=== PATIENT | female | born 1990 | race Caucasian/White ===

== ENCOUNTER 2018-06-08 23:55 | Emergency (ER) | payer MEDICAID ==
[~2018-06-08] VITALS: Ht 152.4 cm; Wt 63.5 kg
--- NOTE | 2018-06-09 00:10 | NUR ---
ASSUMED CARE OF PT AT THIS TIME. C/O INTERMITTENT LEFT INGUINAL PAIN X 2 YEARS W/ WORSENING OVER THE LAST WEEK. AAOX4 WITH EVEN AND STEADY GAIT; PATIENT STATES PAIN OF 0/10; VSS; PATIENT POSITIONED FOR COMFORT; HOB ELEVATED; BEDRAILS UP X2; BED DOWN. ER MD MADE AWARE OF PT STATUS. WILL CONTINUE TO MONITOR.
--- NOTE | 2018-06-09 00:10 | NUR ---
PT TAKEN TO BED 5
[2018-06-09 00:16] VITALS: BP 144/77
--- NOTE | 2018-06-09 00:25 | NUR ---
Dr. Gomes evaluating patient at bedside.
--- NOTE | 2018-06-09 00:31 | NUR ---
PT MOVED TO BED 1
[2018-06-09] MEDS ORDERED: KETOROLAC 30 MG/ML VIAL IM ONE (01:05)
[2018-06-09 02:14] LABS: APPEARANCE,URINE CLEAR (CLEAR); BILIRUBIN,URINE NEGATIVE (NEGATIVE); BLOOD, URINE 1+ (NEGATIVE); COLOR,URINE YELLOW (YELLOW); LEUKOCYTE ESTERASE ,URINE NEGATIVE (NEGATIVE); NITRITE, URINE NEGATIVE (NEGATIVE); PH,URINE 6.5 (5.0-9.0); UGLUCOSE NEGATIVE (NEGATIVE)
[2018-06-09 02:32] LABS: WBC,URINE 0-5 /HPF (0-5)
[2018-06-09 03:02] VITALS: BP 135/68
--- NOTE | 2018-06-09 03:03 | NUR ---
Patient discharged with v/s stable. Written and verbal after care instructions given and explained. Patient alert, oriented and verbalized understanding of instructions. Ambulatory with steady gait. All questions addressed prior to discharge. ID band removed. Patient advised to follow up with PMD. Rx of NAPROSYN 500MG given. Patient educated on indication of medication including possible reaction and side effects. Opportunity to ask questions provided and answered.
== END 2018-06-09 03:03 | disposition home or self-care (01) ==
LOC: MED 23:55
DX: R10.2 Pelvic and perineal pain (principal)
CPT/HCPCS: 76856; 81001; 81025; 93976; 96372; 99284; J1885; Q0092

== ENCOUNTER 2018-08-21 01:48 | Emergency (ER) | payer MEDICAID ==
[~2018-08-21] VITALS: Ht 152.4 cm; Wt 66.2 kg
[2018-08-21 01:58] VITALS: BP 131/78
--- NOTE | 2018-08-21 02:11 | NUR ---
DENIES FEVER, DYSURIA, DIARRHEA, CONSTIPATION OR VOMITING.
--- NOTE | 2018-08-21 02:11 | NUR ---
28/F PRESENTS TO ED, C/O DARK BROWN VAGINAL DISCHARGE/BLEEDING, X4 DAYS. PT REPORTS MILD DIZZINESS, WEAKNESS AND NAUSEA. PT REPORTS 8/10 INTERMITTENT SHARP LOWER BACK PAIN, RADIATING TO MID BACK, NO REDNESS/BRUISING/SWELLING NOTED, REPORTS TENDERNESS. DENIES TRAUMA/INJURY, REPORTS OCCASIONAL HEAVY LIFTING AT WORK. PT AOX4, GCS 15, PERRLA, SKIN NORMAL WARM AND DRY, RR EVEN AND UNLABORED. ALL PERIPHERAL STRENGTH +2, AMBULATORY WITH STEADY GAIT. HX TUBAL LIGATION, X4 OTC EXCEDRIN 6 HRS AGO
[2018-08-21] MEDS ORDERED: KETOROLAC 30 MG/ML VIAL IM ONE (02:55)
--- NOTE | 2018-08-21 03:04 | NUR ---
DR WALTERS AT BEDSIDE FOR OB PELVIC EXAM WITH FEMALE CHAPPERONE ARASH DAO
[2018-08-21 03:42] VITALS: BP 128/78
--- NOTE | 2018-08-21 03:42 | NUR ---
Patient discharged with v/s stable. Written and verbal after care instructions given and explained. Patient alert, oriented and verbalized understanding of instructions. Ambulatory with steady gait. All questions addressed prior to discharge. ID band removed. Patient advised to follow up with PMD. Rx of colace, norco and naprosyn was given. Patient educated on indication of medication including possible reaction and side effects. Opportunity to ask questions provided and answered.
== END 2018-08-21 03:42 | disposition home or self-care (01) ==
LOC: MED 01:48
DX: N93.8 Other specified abnormal uterine and vaginal bleeding (principal); M54.5 Low back pain
CPT/HCPCS: 81002; 81025; 87210; 96372; 99283; J1885

== ENCOUNTER 2018-11-25 09:59 | Emergency (ER) | payer MEDICAID ==
[~2018-11-25] VITALS: Ht 152.4 cm; Wt 70.1 kg
[2018-11-25 10:09] VITALS: BP 133/79
[2018-11-25] MEDS ORDERED: NACL 0.9% 1,000 ML IV SCH (10:39)
[2018-11-25] MEDS ORDERED: ONDANSETRON 4 MG/2 ML VIAL IVP ONE (10:40)
[2018-11-25] MEDS ORDERED: KETOROLAC 30 MG/ML VIAL IVP ONE (10:40)
--- NOTE | 2018-11-25 10:48 | NUR ---
XRAY AT BEDSIDE
[2018-11-25 10:57] LABS: APPEARANCE,URINE CLEAR (CLEAR); BILIRUBIN,URINE NEGATIVE (NEGATIVE); BLOOD, URINE 1+ (NEGATIVE); COLOR,URINE YELLOW (YELLOW); LEUKOCYTE ESTERASE ,URINE NEGATIVE (NEGATIVE); NITRITE, URINE NEGATIVE (NEGATIVE); UGLUCOSE NEGATIVE (NEGATIVE)
--- NOTE | 2018-11-25 11:19 | NUR ---
PT C/O ABD PAIN THAT RADIATES TO LOWER BACK. PAIN DESCRIBED SHARP /10. HAS BEEN OCCURING X2 DAYS. PT HAS TAKEN TYLENOL FOR PAIN RELIEF. C/O NAUSEA, NO VOMITING OR DIARRHEA. LAST BM YESTERDAY AFTERNOON. NO PAIN ON URINATION. PT SITTING IN BED CALM. MEDHX: DENIES
[2018-11-25 11:22] LABS: RBC,URINE 0-5 /HPF (0-5); WBC,URINE 0-5 /HPF (0-5)
[2018-11-25 11:25] LABS: BASOPHILS % (AUTO) 0.5 % (0.0-2.0); HEMATOCRIT 40.8 % (36-48); HEMOGLOBIN 13.6 g/dL (12.0-16.0); LYMPHOCYTES # (AUTO) 1.1 K/uL (2.5-16.5); MEAN CORPUSCULAR HEMOGLOBIN 29 pg (27-31); MEAN CORPUSCULAR HGB CONC 33 g/dL (33-37); MEAN CORPUSCULAR VOLUME 86.1 fL (80-94); MONOCYTES # (AUTO) 0.5 K/uL (0.8-1.0); MONOCYTES % (AUTO) 11.5 % (1.7-9.3); NEUTROPHILS # (AUTO) 2.7 K/uL (1.8-7.7); PLATELET COUNT (AUTO) 274 K/uL (140-450); RED BLOOD CELL COUNT(AUTO) 4.74 MIL/uL (4.20-5.40); WHITE BLOOD COUNT (AUTO) 4.4 K/uL (4.8-10.8)
[2018-11-25 11:38] LABS: ALBUMIN 3.7 g/dL (3.4-5.0); ANION GAP 12.1 (8-16); CARBON DIOXIDE 27.3 mmol/L (21-32); CREATININE 0.8 mg/dL (0.6-1.3); POTASSIUM 3.4 mmol/L (3.5-5.1); TOTAL BILIRUBIN 0.3 mg/dL (0.0-1.0)
[2018-11-25 11:44] LABS: PROTHROMBIN TIME 9.6 secs (10.8-13.4)
--- NOTE | 2018-11-25 11:55 | NUR ---
PT STATES THAT SHE IS FEELING BETTER AFTER THE MEDS.
[2018-11-25] MEDS ORDERED: cefTRIAXone 1,000 MG VIAL ONE (12:17)
--- NOTE | 2018-11-25 12:29 | NUR ---
PT AMBULATE TO BATHROOM
[2018-11-25 13:45] VITALS: BP 122/70
--- NOTE | 2018-11-25 13:45 | NUR ---
Patient discharged with v/s stable. Written and verbal after care instructions given and explained. Patient alert, oriented and verbalized understanding of instructions. Ambulatory with steady gait. All questions addressed prior to discharge. ID band removed. Patient advised to follow up with PMD. Rx of NORCO ZOFRAN given. Patient educated on indication of medication including possible reaction and side effects. Opportunity to ask questions provided and answered.
== END 2018-11-25 10:30 | disposition home or self-care (01) ==
LOC: MED 09:59
DX: N12 Tubulo-interstitial nephritis, not specified as acute or chronic (principal)
CPT/HCPCS: 36415; 71045; 76700; 80053; 81001; 81025; 83605; 85025; 85610; 85730; 87040; 87086; 96365; 96375; 99284; J0696; J1885; J2405; J7030; Q0092; 81002